=== PATIENT | male | born 1955 | race Caucasian/White ===

== ENCOUNTER 2017-02-07 16:13 | Emergency (ER) | payer BC ==
--- NOTE | 2017-02-07 16:17 | ER Report ---
History and Physical Time Seen By MD: 16:16 HPI/ROS CC: Third-degree heart block HPI: 61-year-old male with a negative past medical history but is taking herbs including Oregano and Ginseng today with a six-day history of shortness of breath presented to his PCP. ECG was done at that time in the office and patient is found to be in third-degree heart block with rate of 35 bpm. Patient denies any chest pain, chest pressure, nausea vomiting, diaphoresis. He is short of breath. He states that over the weekend he was shoveling snow in his driveway and was slightly short of breath. He states that he has been sleeping okay but will wake up in the middle of the night short of breath. Presently vital signs are stable. Blood pressure is 141/76 mmHg, SaO2 is 97% on room air. ROS: 12 point review of systems essentially negative other than what's mentioned in history of present illness. NURSES AND OLD MEDICAL RECORDS: Reviewed PMH: Reviewed SURGICAL HX: Reviewed FAMILY HX: Noncontributory SOCIAL HX: Patient denies smoking alcohol or illicit drugs. VITAL SIGNS: Reviewed CONSTITUTIONAL: 61-year-old male in minimal distress. PHYSICAL EXAM: HEENT: Pupils equal round reactive to light and accommodate, EOMI, tympanic membranes pearly white umbo present with good light reflex. Lips dry mucous membranes moist gums nonbleeding uvula midline and rises equally with phonation, oropharynx noninjected, teeth intact. NECK: Neck supple, thyroid not appreciated, anterior and posterior cervical lymphadenopathy not appreciated. Trachea midline and rises equally with phonation. CARDIAC: S1-S2 bradycardic regular rate rhythm no murmurs rubs or gallops. LUNGS: Lungs clear bilaterally posteriorly in all moya. Good air movement. ABDOMEN: Abdomen soft, nondistended, bowel sounds active in all 4 quadrants, no bruits noted, no CVA tenderness. MUSCULOSKELETAL: Strength 5 out of 5 x 4 extremities, no deformities noted. NEUROLOGIC: Patient alert and oriented by 3 Constitutional Vital Sign - Last 24 Hours 02/07/17 16:19 Temp 98.0 Pulse 37 Resp 16 B/P (MAP) 144/78 Pulse Ox 98 Medical Decision Making EKG/Imaging EKG Interpretation Third-degree AV block. Ventricular rate 35 bpm, WV interval not measurable, QRS duration 114 ms, QTC 590 ms, QTc is 450 ms. No previous ECG to compare. ED Course/Re-evaluation ED Course I discussed the case with , steam plant operator in [place]. He agrees patient is to be transferred immediately per ground to [facility]. I also talked simultaneously with the hospitalist. Patient will be admitted to telemetry unit for further evaluation and treatment. Patient will have pacing pads placed but not activated. No atropine is required at this time as patient' s vital signs are stable. Patient aware plan and in agreement. I discussed briefly the procedural discourse that will be taking place in transferring and placement of the pacemaker to both the patient and his . They understand and are in agreement with plan. Decision to Disposition Date: Feb 07, 2017 Decision to Disposition Time: 16:50 Depart Departure Latest Vital Signs Vital Signs Date Time Temp Pulse Resp B/P (MAP) Pulse Ox O2 Delivery O2 Flow Rate FiO2 02/07/17 16:19 98.0 37 16 144/78 98 Impression: Primary Impression: Complete heart block Condition: Condition Unchanged Disposition: [facility] YOUSIF JURADO MD Feb 07, 2017 16:17
[2017-02-07] MEDS ORDERED: NS(*) 0.9% 1000 ML BAG 1,000 ML IV ONE (16:32)
[2017-02-07] MEDS ORDERED: MAGNESIUM SUL* 2 GM/50 ML IVPB 50 ML IVPB ONE (16:35)
--- NOTE | 2017-02-07 16:42 | EKG ---
FACILITY: [facility] [place] PATIENT NAME: AVIVA DANIEL : [id number] MR: [id number] V: [id number] EXAM DATE: ORDERING PHYSICIAN: YOUSIF JURADO TECHNOLOGIST: FILOMENA Segal Reason : BRADYCARDIA Blood Pressure : / mmHG Vent. Rate : 035 BPM Atrial Rate : 088 BPM P-R Int : 000 ms QRS Dur : 114 ms QT Int : 590 ms P-R-T Axes : 073 071 -02 degrees QTc Int : 450 ms Junctional bradycardia with complete heart block Right bundle branch block Abnormal ECG No previous ECGs available Confirmed by PAWEL GORDON ([id number]) on 02/09/2017 3:01:33 PM Referred By: ADRIEN Confirmed By:PAWEL GORDON
[2017-02-07 16:46] LABS: PLATELET COUNT, AUTOMATED 184 K/uL (150-450)
[2017-02-07 16:57] LABS: INR 1.1
[2017-02-07] MEDS ORDERED: GING550C2 (16:59)
[2017-02-07] MEDS ORDERED: LORazepam 1 MG TAB PO ONE (17:05)
[2017-02-07 17:45] VITALS: BP 120/68
--- NOTE | 2017-02-07 17:49 | RADIOLOGY IMAGING REPORT ---
FACILITY: [facility] PATIENT NAME: Clinton Milsl : 1955 MR: [id number] V: [id number] EXAM DATE: ORDERING PHYSICIAN: YOUSIF JURADO TECHNOLOGIST: Location: [facility] [place] Patient: Clinton Mills : 1955 Visit/Account:[id number] Date of Sevice: 02/07/2017 EXAMINATION: Portable chest radiograph single view at 02/07/2017 16:32 HISTORY: Chest pain. COMPARISON: None. FINDINGS: A single portable AP view of the chest is obtained. Lines/tubes: None. Lungs/pleura: Negative. Heart: Negative. Mediastinum: Negative. Bony structures/body wall: Negative. IMPRESSION: No acute cardiopulmonary process. Report Dictated By: Ricardo Viramontes MD at 02/07/2017 5:44 PM Report E-Signed By: Ricardo Viramontes MD at 02/07/2017 5:46 PM WSN:[id number]
== END 2017-02-07 17:55 ==
LOC: ER 16:25
DX: I44.2 Atrioventricular block, complete (principal)
CPT/HCPCS: 71010; 83735; 83880; 84484; 85025; 85379; 85610; 85730; 93005; 96365; 99285; J3475; J7030; 82040; 82247; 82310; 82374; 82435; 82565; 82947; 84075; 84132; 84155; 84295; 84450; 84460; 84520

== ENCOUNTER → 2017-02-07 | Outpatient (CLI) | payer BC ==
[~2017-02-07] MED LIST: GING550C2
== END ==
LOC: AMB 17:24
PROVIDERS: ATTEND Nurse Practitioner
DX: I44.2 Atrioventricular block, complete (principal)
CPT/HCPCS: A0425; A0434

== ENCOUNTER → 2017-10-23 | Day surgery (SDC) | payer BC ==
[~2017-10-23] VITALS: Ht 172.7 cm; Wt 85.3 kg
[~2017-10-23] MED LIST changes: +LIDOCAINE/SOD BICARB 8.4% SYR ID ONE; +NORMOSOL R SOLN(*) 1000 ML BAG 1,000 ML IV PRN; +PROPOFOL EMUL(*) 10MG/ML 20 ML 20 ML ONE
[2017-10-23 07:39] VITALS: BP 134/88
[2017-10-23 09:20] VITALS: BP 117/82
[2017-10-23 09:30] VITALS: BP 121/86
[2017-10-23 09:45] VITALS: BP 126/96
[2017-10-23 10:00] VITALS: BP 136/85
[2017-10-23 10:01] VITALS: BP 127/77
== END ==
LOC: OR 01:44
PROVIDERS: ATTEND Family Medicine
DX: Z12.11 Encounter for screening for malignant neoplasm of colon (principal)
CPT/HCPCS: 00812; 45378; J2704